=== PATIENT | male | born 1975 | race Caucasian/White ===

== ENCOUNTER 2018-02-07 09:33 | Emergency (ER) | payer OTHER ==
--- NOTE | 2018-02-07 10:40 | XRAY Report ---
Reason: fall Procedure Date: 02/07/2018 Accession Number: [id number] / [id number] Procedure: XR - Ankle 3 View LT CPT Code: FULL RESULT: EXAM: LEFT ANKLE RADIOGRAPHY EXAM DATE: 02/07/2018 10:13 AM. CLINICAL HISTORY: Fall. COMPARISON: None. TECHNIQUE: 3 views. FINDINGS: Bones: Normal. No fractures or bone lesions. Joints: Normal. No effusion. No subluxations. The ankle mortise is normally aligned. Soft Tissues: There is mild soft tissue swelling. IMPRESSION: 1. No evidence of fracture. 2. Mild soft tissue swelling. RADIA
--- NOTE | 2018-02-07 10:47 | ED Physician Documentation ---
History of Present Illness - Stated complaint Stated Complaint: LEFT ANKLE PX - Chief complaint Chief Complaint: Ext Problem - Additonal information Additional information: hx from pt standing on bench to get ladder and it tipped and he rolled his L ankle forward no other injury been walking on it more swollen and painful today Review of Systems Musculoskeletal: reports: Pain with weight bearing PD PAST MEDICAL HISTORY - Present Medications Home Medications: Ambulatory Orders Medication Instructions Recorded Confirmed No Known Home Medications 02/07/18 02/07/18 - Allergies Allergies/Adverse Reactions: Allergies Allergy/AdvReac Type Severity Reaction Status Date / Time No Known Drug Allergies Allergy Verified 02/07/18 09:54 - Social History Does the pt smoke?: No Smoking Status: Never smoker Does the pt drink ETOH?: Yes ETOH Use: Beer Does the pt have substance abuse?: No PD ED PE NORMAL - Vitals Vital signs reviewed: Yes - Extremities Extremities: Other (L ankle + swelling, TTP anterior, no lat med mall TTP, no laxity, no foot pain, MSV intact) Results - Vitals Vitals: Vital Signs - 24 hr 02/07/18 09:51 Temperature 36.4 C L Heart Rate 66 Respiratory 20 Rate Blood Pressure 126/78 O2 Saturation 99 Oxygen O2 Source Room air - Rads (name of study) ankle Radiology: See rad report (neg) PD MEDICAL DECISION MAKING - Sepsis Event Vital Signs: Vital Signs - 24 hr 02/07/18 09:51 Temperature 36.4 C L Heart Rate 66 Respiratory 20 Rate Blood Pressure 126/78 O2 Saturation 99 Oxygen O2 Source Room air Departure - Departure Disposition: 01 Home, Self Care Clinical Impression: Ankle sprain Qualifiers: Encounter type: initial encounter Involved ligament of ankle: unspecified ligament Laterality: unspecified laterality Qualified Code(s): S93.409A - Sprain of unspecified ligament of unspecified ankle, initial encounter Condition: Good Instructions: ED Sprain Ankle W X Ray Comments: The xray shows no fracture Recommend motrin ice and elevation for pain and swelling Use the crutches as needed to reduce weight bearing stress If still painful in a few weeks, follow up with your PMD for a recheck Physical therapy can help your ankle heal stronger - call your insurance to ask how to access this service
[2018-02-07 10:57] VITALS: BP 128/72
== END 2018-02-07 10:58 | disposition home or self-care (01) ==
LOC: ED 09:33
DX: S93.402A Sprain of unspecified ligament of left ankle, initial encounter (principal); W17.89XA Other fall from one level to another, initial encounter; X50.1XXA Overexertion from prolonged static or awkward postures, initial encounter
CPT/HCPCS: 99282; 99283